=== PATIENT | male | born 1950 | race Caucasian/White ===

== ENCOUNTER 2018-03-24 22:47 | Emergency (ER) | payer OTHER ==
[2018-03-24] MEDS ORDERED: METOPROLOL TARTRATE 50 MG TAB PO STA (23:30)
--- NOTE | 2018-03-24 23:40 | ED ---
Medical Clearance HPI - General Chief complaint: Medical Clearance Stated complaint: [facility] clearance Time Seen by Provider: 03/24/18 23:19 Source: patient Mode of arrival: ambulatory - History of Present Illness Initial comments: Patient is a pleasant 68-year-old male with a history of hypertension, hyperlipidemia, previous heart attacks, previous stroke, and recent orthopedic hip surgery that requires him to walk on crutches who presents to the emergency department in police custody requesting medical clearance for shelter. The assistant chief of police in the room states that the patient was brought in on a warrant for unpaid fee to the court. The assistant chief of police states that if the patient is medically clear that he will be taken to shelter until Monday. If he is not medically clear the patient will be returned home. The patient has no complaints today other than the fact that he takes several medications at home and will not have access to them if he is in shelter. Allergies/Adverse reactions: Allergies Allergy/AdvReac Type Severity Reaction Status Date / Time No Known Allergies Allergy Verified 03/24/18 23:12 Review of Systems ROS Statement: Those systems with pertinent positive or pertinent negative responses have been documented in the HPI. ROS Other: All systems not noted in ROS Statement are negative. Past Medical History Past Medical History: CVA/TIA, Myocardial Infarction (MA) History of Any Multi-Drug Resistant Organisms: None Reported Past Surgical History: Heart Catheterization, Heart Catheterization With Stent, Orthopedic Surgery Additional Past Surgical History / Comment(s): Fractured hip. Past Psychological History: No Psychological Hx Reported Smoking Status: Never smoker Past Alcohol Use History: None Reported Past Drug Use History: None Reported General Exam Limitations: no limitations General appearance: alert, in no apparent distress Head exam: Present: atraumatic, normocephalic Eye exam: Present: normal appearance ENT exam: Present: normal exam Neck exam: Present: normal inspection Respiratory exam: Present: normal lung sounds bilaterally. Absent: respiratory distress, wheezes Cardiovascular Exam: Present: regular rate, normal rhythm GI/Abdominal exam: Present: soft. Absent: distended, tenderness Rectal exam: Present: deferred Extremities exam: Present: normal inspection Back exam: Present: normal inspection Neurological exam: Present: alert, oriented X3, CN II-XII intact, abnormal gait (Secondary to orthopedic surgery and use of crutches.) Psychiatric exam: Present: normal affect, normal mood Skin exam: Present: warm, dry, intact Course Vital Signs 03/24/18 23:09 Temperature 98.3 F Pulse Rate 73 Respiratory 18 Rate Blood Pressure 223/108 O2 Sat by Pulse 95 Oximetry Medical Decision Making - Medical Decision Making Patient presents with a chief complaint of needing medical clearance for shelter. On initial evaluation patient is hypertensive but otherwise stable. He is in no acute distress. At this time, patient was given his home dose of metoprolol for blood pressure control. Discussion with the assistant chief of police reveals that this cleared for shelter he will not have access to his medications. I do not believe this to be a safe situation given his extensive medical history, and moderate disability given recent surgery and required use of crutches. I do not feel that patient is medically clear for shelter. The patient will be returned home and will need to follow up with the court on Monday. The patient and the officer at bedside are agreeable with this plan. Patient stable on discharge. Disposition Clinical Impression: Hypertension Disposition: HOME SELF-CARE Condition: Good Instructions: Hypertension (ED) Is patient prescribed a controlled substance at d/c from ED?: No Referrals: Nonstaff,Physician [Primary Care Provider] - 1-2 days Ni Tan MD [STAFF PHYSICIAN] - 1-2 days Decision to Admit Reason: Admit from EC
[2018-03-25 00:12] VITALS: BP 179/89; PULSE 84; RESP 20; TEMP 98
== END 2018-03-25 00:12 | disposition home or self-care (01) ==
LOC: EC 22:47
DX: I10 Essential (primary) hypertension (principal); I25.2 Old myocardial infarction; Z86.73 Personal history of transient ischemic attack (TIA), and cerebral infarction without residual deficits; Z95.5 Presence of coronary angioplasty implant and graft; Z98.890 Other specified postprocedural states
CPT/HCPCS: 99282

== ENCOUNTER 2024-10-03 02:51 | Inpatient (IN) | payer MEDICARE ==
[2024-10-03 03:14] LABS: Basophils # (A) 0.02 10*3/uL (0.00-0.10); Basophils % (A) 0.2 %; Eosinophils # (A) 0.14 10*3/uL (0.04-0.35); Eosinophils % (A) 1.5 %; HCT 40.2 % (39.6-50.0); HGB 13.8 g/dL (13.0-17.0); Lymphocytes # (A) 1.45 10*3/uL (0.90-5.00); Lymphocytes % (A) 15.1 %; MCH 31.5 pg (27.0-32.0); MCHC 34.3 g/dL (32.0-37.0); MCV 91.8 fL (80.0-97.0); Mean Platelet Volume 8.9 fL (9.5-12.2); Monocytes # (A) 0.67 10*3/uL (0.20-1.00); Neutrophils # (A) 7.27 10*3/uL (1.80-7.70); Neutrophils % (A) 75.8 %; Platelet Count 241 10*3/uL (140-440); RBC 4.38 10*6/uL (4.40-5.60); RDW 13.4 % (11.5-14.5); WBC 9.59 10*3/uL (4.50-10.00)
[2024-10-03] MEDS: ASPIRIN 81 MG PO STA (03:15)
--- NOTE | 2024-10-03 03:15 | ED ---
Chest Pain HPI - General Chief Complaint: Chest Pain Stated Complaint: Chest Pain Time Seen by Provider: 10/03/24 02:54 Source: patient, EMS Mode of arrival: EMS Limitations: no limitations - History of Present Illness Initial Comments: This patient is a 74-year-old man who has history of previous OR, 3 times. First OR resulted in four-vessel CABG. He subsequently had MIs which were stented. The patient states that he had pain that came on tonight and was relieved with nitroglycerin. He states that approximately 20 to 30 minutes later he had recurrence of pain which again resolved with nitroglycerin but when the pain recurred for third time he called EMS and they bring him here. He indicates substernal pain. It is a pressure sensation. He also is having some dyspnea. MD Complaint: chest pain -: hour(s) Onset: during rest Pain Location: substernal Pain Radiation: none Severity: moderate Quality: aching, heaviness Consistency: constant Improves With: nothing Worsens With: nothing Anginal Symptoms: dyspnea Treatments Prior to Arrival: aspirin, nitroglycerin - Related Data Home Medications Medication Instructions Recorded Confirmed Acetaminophen Tab [Tylenol] 325 mg PO Q6H 10/03/24 10/03/24 Aspirin EC [Ecotrin Low Dose] 81 mg PO HS 10/03/24 10/03/24 Atorvastatin [Lipitor] 80 mg PO HS 10/03/24 10/03/24 Clopidogrel [Plavix] 75 mg PO DAILY 10/03/24 10/03/24 Gabapentin [Neurontin] 300 mg PO BID 10/03/24 10/03/24 Isosorbide Mononitrate ER [Imdur] 30 mg PO DAILY 10/03/24 10/03/24 Losartan Potassium 100 mg PO DAILY 10/03/24 10/03/24 Nitroglycerin Sl Tabs [Nitrostat] 0.4 mg SL Q5M PRN 10/03/24 10/03/24 Omeprazole 20 mg PO HS 10/03/24 10/03/24 Oxybutynin ER [Ditropan XL] 10 mg PO DAILY 10/03/24 10/03/24 Primidone [Mysoline] 250 mg PO DAILY 10/03/24 10/03/24 amLODIPine [Norvasc] 5 mg PO HS 10/03/24 10/03/24 metFORMIN HCL [Glucophage] 500 mg PO HS 10/03/24 10/03/24 oxyCODONE HCL [oxyCODONE HCL (IR)] 20 mg PO Q6H 10/03/24 10/03/24 Previous Rx's Medication Instructions Recorded Metoprolol Tartrate [Lopressor] 25 mg PO BID 30 Days #60 tab 10/04/24 Allergies Allergy/AdvReac Type Severity Reaction Status Date / Time No Known Allergies Allergy Verified 10/03/24 06:22 Review of Systems ROS Statement: Those systems with pertinent positive or pertinent negative responses have been documented in the HPI. ROS Other: All systems not noted in ROS Statement are negative. Constitutional: Denies: fever, chills Respiratory: Reports: dyspnea. Denies: cough Cardiovascular: Reports: as per HPI, chest pain. Denies: palpitations, orthopnea, edema, syncope Gastrointestinal: Denies: abdominal pain, nausea, vomiting Musculoskeletal: Denies: back pain Skin: Denies: rash Neurological: Denies: headache, weakness, numbness EKG Findings - EKG Results: EKG: interpreted by ERMD - Blocks, [place], Hypertrophy, ST Abn: AV and intraventricular conduction: left bundle branch block (fixed/intermittent, complete/incomplete) QRS axis and voltage: left axis deviation (-30 to -90) Past Medical History Past Medical History: CVA/TIA, Myocardial Infarction (OR) Additional Past Medical History / Comment(s): total of 7 cardiac stents History of Any Multi-Drug Resistant Organisms: None Reported Past Surgical History: Heart Catheterization, Heart Catheterization With Stent, Orthopedic Surgery Additional Past Surgical History / Comment(s): Fractured hip. Past Psychological History: No Psychological Hx Reported Past Alcohol Use History: None Reported Past Drug Use History: None Reported General Exam Limitations: no limitations General appearance: alert, in no apparent distress Head exam: Present: atraumatic, normocephalic Eye exam: Present: normal appearance. Absent: scleral icterus, conjunctival injection ENT exam: Present: normal oropharynx Neck exam: Present: normal inspection. Absent: tenderness, meningismus Respiratory exam: Present: normal lung sounds bilaterally. Absent: respiratory distress, wheezes, rales, rhonchi, stridor, chest wall tenderness, accessory muscle use Cardiovascular Exam: Present: regular rate, normal rhythm, normal heart sounds. Absent: systolic murmur, diastolic murmur, rubs, gallop GI/Abdominal exam: Present: soft. Absent: distended, tenderness, guarding, rebound Extremities exam: Present: normal inspection, normal capillary refill. Absent: pedal edema, calf tenderness Back exam: Present: normal inspection. Absent: CVA tenderness (R), CVA tenderness (L) Neurological exam: Present: alert Skin exam: Present: warm, dry, intact, normal color. Absent: rash Course Vital Signs 10/03/24 10/03/24 10/03/24 02:53 03:27 03:43 Temperature 98.3 F Pulse Rate 88 69 Respiratory 18 18 Rate Blood Pressure 183/105 175/96 O2 Sat by Pulse 87 L 92 L 94 L Oximetry 10/03/24 10/03/24 10/03/24 04:00 04:16 04:30 Temperature Pulse Rate 69 68 69 Respiratory 18 18 18 Rate Blood Pressure 161/87 151/103 167/99 O2 Sat by Pulse 95 94 L 92 L Oximetry 10/03/24 10/03/24 10/03/24 05:18 05:58 06:13 Temperature Pulse Rate 64 66 68 Respiratory 18 16 18 Rate Blood Pressure 188/131 138/92 139/91 O2 Sat by Pulse 91 L 92 L 93 L Oximetry 10/03/24 10/03/24 10/03/24 07:11 07:49 08:30 Temperature Pulse Rate 67 68 67 Respiratory 16 18 18 Rate Blood Pressure 141/91 121/84 120/75 O2 Sat by Pulse 94 L 95 Oximetry 10/03/24 10/03/24 09:32 10:37 Temperature Pulse Rate 68 67 Respiratory 19 18 Rate Blood Pressure 157/95 153/97 O2 Sat by Pulse 95 93 L Oximetry Chest Pain [facility] - MDM The patient had chest x-ray which I interpreted as negative for acute infiltrate, pneumothorax. There is cardiomegaly. The patient had CT scan of the chest which I interpreted as negative for pulmonary embolism, infiltrate, pneumothorax Patient is 74-year-old man with chest pain concerning for acute coronary syndrome. The patient's workup does reveal elevated troponin. The patient started on additional medications Case is discussed with cardiology and they will see the patient early. He is chest pain-free with the medications. Was pt. sent in by a medical professional or institution (, PA, SOLID DIE CUTTER, urgent care, hospital, or penitentiary...) When possible be specific @ -[No] Did you speak to anyone other than the patient for history (EMS, parent, family, police, friend...)? What history was obtained from this source @ -[No] Did you review nursing and triage notes (agree or disagree)? Why? @ -[I reviewed and agree with nursing and triage notes] Were old charts reviewed (outside hosp., previous admission, EMS record, old EKG, old radiological studies, urgent care reports/EKG's, penitentiary records)? Report findings @ -Yes, I interpreted old charts were reviewed] Differential Diagnosis (chest pain, altered mental status, abdominal pain women, abdominal pain men, vaginal bleeding, weakness, fever, dyspnea, syncope, headache, dizziness, GI bleed, back pain, seizure, CVA, palpatations, mental health, musculoskeletal)? @ -[Differential Chest Pain: Stable Angina, Unstable Angina, STEMI, NSTEMI Aortic Dissection, Pneumothorax, Musculoskeletal, Esophageal Spasm GERD, Cholecystitis, Pancreatitis, Zoster, this is not meant to be an all-inclusive list. EKG interpreted by me (3pts min.). @ -[I interpreted as above] X-rays interpreted by me (1pt min.). @ -[I interpreted as above CT interpreted by me (1pt min.). @ -[I interpreted as above U/S interpreted by me (1pt. min.). @ -[None done] What testing was considered but not performed or refused? (CT, X-rays, U/S, labs)? Why? @ -[None] What meds were considered but not given or refused? Why? @ -[None] Did you discuss the management of the patient with other professionals (professionals i.e. , PA, [employer] DIE C[employer]TER, lab, RT, psych nurse, social work associate, obstetrics technician, teacher, bsa/aml compliance officer, employment evaluator/case manager)? Give summary @ -[Case discussed with admitting physician and the senior cytogenetic technologist, and treatment recommendations incorporated Was smoking cessation discussed for >3mins.? @ -[No] Was critical care preformed (if so, how long)? @ -Yes, 35 minutes Were there social determinants of health that impacted care today? How? (Homelessness, low income, unemployed, alcoholism, drug addiction, transportation, low edu. Level, literacy, decrease access to med. care, assisted, r ehab)? @ -[No] Was there de-escalation of care discussed even if they declined (Discuss DNR or withdrawal of care, Hospice)? DNR status @ -[No] What co-morbidities impacted this encounter? (DM, HTN, Smoking, COPD, CAD, Cancer, CVA, ARF, Chemo, Hep., AIDS, mental health diagnosis, sleep apnea, morbid obesity)? @ -CAD Was patient admitted / discharged? Hospital course, mention meds given and rout e, prescriptions, significant lab abnormalities, going to OR and other pertinent info. @ -[As above Undiagnosed new problem with uncertain prognosis? @ -[No] Drug Therapy requiring intensive monitoring for toxicity (Heparin, Nitro, Insulin, Cardizem)? @ -[Heparin and nitroglycerin infusion Were any procedures done? @ -[No] Diagnosis/symptom? @ -[Acute coronary syndrome Acute, or Chronic, or Acute on Chronic? @ -[Acute Uncomplicated (without systemic symptoms) or Complicated (systemic symptoms)? @ -[Uncomplicated Side effects of treatment? @ -[No] Exacerbation, Progression, or Severe Exacerbation? @ -[No] Poses a threat to life or bodily function? How? (Chest pain, [place], OR, pneumonia, PE, COPD, DKA, ARF, appy, cholecystitis, CVA, Diverticulitis, Homicidal, Suicidal, threat to staff... and all critical care pts) @ -[yes All treatments are based on ideal body weight as in ED triage Disposition Clinical Impression: NSTEMI (non-ST elevated myocardial infarction), Chest pain Disposition: ADMITTED IP TO THIS HOSP Condition: Stable Is patient prescribed a controlled substance at d/c from ED?: No
[2024-10-03] MEDS: METOPROLOL TARTRATE 25 MG TAB PO STA (03:17)
[2024-10-03] MEDS: NITROGLYCERIN OINT 1 INCH/GM PACKET TOPICAL STA (03:17)
[2024-10-03] MEDS: MORPHINE SULFATE 4 MG/ML SYRINGE IV STA (03:17)
[2024-10-03 03:20] LABS: ALT 21 U/L (4-49); AST 44 U/L (17-59); African American GFR (CKD) >90 (>60 ml/min/1.73 sqM); Albumin 3.9 g/dL (3.5-5.0); Alkaline Phosphatase 133 U/L (38-126); Anion Gap 11 mmol/L; Blood Urea Nitrogen 20 mg/dL (9-20); Calcium 8.9 mg/dL (8.4-10.2); Carbon Dioxide 22 mmol/L (22-30); Chloride 103 mmol/L (98-107); Glucose 120 mg/dL (74-99); Magnesium 2.1 mg/dL (1.6-2.3); Non-African American GFR(CKD) 88 (>60 ml/min/1.73 sqM); Potassium 4.2 mmol/L (3.5-5.1); Sodium 136 mmol/L (137-145); Total Bilirubin 0.7 mg/dL (0.2-1.3); Total Protein 6.9 g/dL (6.3-8.2)
[2024-10-03 03:40] LABS: Partial Thromboplastin Time 23.8 sec (22.0-30.0); Prothrombin Time 11.3 sec (10.0-12.5)
--- NOTE | 2024-10-03 03:55 | XR ---
EXAMINATION TYPE: XR chest 1V portable DATE OF EXAM: 10/03/2024 3:16 AM COMPARISON: None TECHNIQUE: XR chest 1V portable Portable AP radiograph of the chest. CLINICAL INDICATION:Male, 74 years old with history of chest pain; FINDINGS: Lungs/Pleura: There is no evidence of pleural effusion, focal consolidation, or pneumothorax. Senesc ent parenchymal change. Pulmonary vascularity: Unremarkable. Heart/mediastinum: Cardiomediastinal silhouette is enlarged. Atherosclerotic calcifications are seen in the aorta. Musculoskeletal: No acute osseous pathology. Midline sternotomy wires are noted. IMPRESSION: No acute cardiopulmonary disease/process. [facility], , 10/03/2024 3:52 AM
[2024-10-03] MEDS: NITROGLYCERIN-D5W PMX 50 MG in DEXTROSE/WATER 1 250ML.BAG IV ONE (04:02)
[2024-10-03] MEDS ORDERED: MORPHINE SULFATE 4 MG/ML SYRINGE IV PRN (04:32)
--- NOTE | 2024-10-03 05:32 | CT ---
EXAM: CT Angiography Chest With Intravenous Contrast CLINICAL HISTORY: ITS.REASON CT Reason: chest pain TECHNIQUE: Axial computed tomographic angiography images of the chest with intravenous contrast. CTDI is 10.5 mGy and DLP is 371.4 mGy-cm. This CT exam was performed using one or more of the following dose reduction techniques: automated exposure control, adjustment of the mA and/or kV according to patient size, and/or use of iterative reconstruction technique. MIP reconstructed images were created and reviewed. COMPARISON: No relevant prior studies available. FINDINGS: Pulmonary arteries: Unremarkable. No pulmonary embolism. Aorta: No acute findings. No thoracic aortic aneurysm. Lungs: Mild bilateral upper lobe predominant interlobular septal thickening likely related to mild pulmonary edema. Pleural-based calcified granuloma in the right upper lobe. Bibasilar subsegmental atelectasis. No mass. Pleural space: Unremarkable. No significant effusion. No pneumothorax. Heart: Borderline cardiomegaly. Multivessel coronary artery disease. Postsurgical changes from CABG. Calcifications in the aortic valve leaflets. No significant pericardial effusion. No evidence of RV dysfunction. Bones/joints: Prior median sternotomy. Chronic left posterior rib fracture deformity. No dislocation. Soft tissues: Unremarkable. Lymph nodes: Unremarkable. No enlarged lymph nodes. Tubes, lines and devices: Left atrial appendage occlusion device. IMPRESSION: Mild bilateral upper lobe predominant interlobular septal thickening likely related to mild pulmonary edema. No pulmonary embolism. Other chronic findings in the body the report.
[2024-10-03] MEDS: HEPARIN SODIUM 1,000 UN/ML (10ML VL) IV ONE ×2 (05:39→11:44)
[2024-10-03] MEDS: HEPARIN SOD,PORK IN 0.45% NACL 25,000 UNIT in 0.45% NACL 1 250ML.BAG IV SCH (05:41)
[2024-10-03] MEDS: SODIUM CHLORIDE 0.9% 1,000 ML IV SCH ×2 (06:03→10:36)
[2024-10-03 06:13] LABS: Glucose,Whole Blood 103 mg/dL (70-110)
--- NOTE | 2024-10-03 06:17 | P.HPIM ---
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 He states the pain was alleviated with use of nitroglycerin at home, after 20-30 minutes he had recurrence of the pain which again resolved with nitroglycerin. He then had a third recurrence of the same pain, at that time he called EMS. He describes it as a pressure-like sensation in the mid epigastric area, as well as notes some shortness of breath. He received 3 doses of nitroglycerin as well as 324 mg aspirin en route. He states that the pain was very similar to his previous MIs, noting that the pressure- like sensation in the mid epigastric area as well as the radiation into his left arm with numbness and tingling overall similar to what he is previously experienced however he notes that this time around it was not as severe as it has been previously. He does endorse following with wind technician at [facility], with whom he follows up regularly. States he had a watchman placed in summer 2023, stating that he was considered to be a good candidate in the effort to not have him on as many blood thinning medications, which she notes the procedure was successful. Social history: - Smoking: Denies - Alcohol use: Minimal social - Recreational drug use: Denies Labratory review: -WBCs 9.59, hemoglobin 13.8, hematocrit 40.2, platelet 241; sodium 136, potassium 4.2, bicarb 22, BUN 20, creatinine 0.77, calcium 8.9, magnesium 2.1, t otal bilirubin 0.7, AST 44, ALT 21, alkaline phosphatase 133 - Troponin 1.170; D-dimer 1.39 Imaging: - Chest x-ray done in the ER independently read and reviewed showed no acute cardiopulmonary disease process - CT angiography showed no evidence of pulmonary embolism, showing mild bilateral upper lobe predominant interlobular septal thickening likely related to mild pulmonary edema - EKG done in the ER independently read and interpreted showed heart rate of 90, evidence of atrial fibrillation, no ST segment elevation or depression seen, no T-wave inversions seen; left axis deviation as well as evidence of left bundle branch block; QTc 447 Vitals: - On arrival: Blood pressure 193/105, heart rate 88, respiratory 18, SpO2 was 87% on room air - Most recently: Blood pressure 167/99, heart rate 69, respiratory rate 18, SpO2 92% on 2 L nasal cannula Patient admitted to internal medicine service REVIEW OF SYSTEMS: Pertinent positives and negatives noted in HPI. The rest of the 14-point review of systems is negative. Physical Exam: General: nontoxic, no distress, appears at stated age Derm: warm, dry, intact Head: atraumatic, normocephalic, symmetric Eyes: EOMI, anicteric sclera Mouth: no lip lesion, mucus membranes moist Cardiovascular: S1 S2 reg, no murmur, rubs, or gallops Lungs: CTA bilateral, no rales, no accessory muscle use Abdominal: soft, non-tender to palpataion, no appreciable organomegaly Extremities: no gross muscle atrophy, no edema, no contractures Neuro: Alert, Oriented, CNII-XII grossly intact, gait normal Psych: well appearing, appropriate affect Assessment and plan 74-year-old male with PMH of 3 MIs, 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 #Type I NSTEMI #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, 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 and the others resulting in stent placement (most recent in 2016, total of 7 stents placed) - EKG done in the ER independently read and interpreted showed heart rate of 90, evidence of atrial fibrillation, no ST segment elevation or depression seen, no T-wave inversions seen; left axis deviation as well as evidence of left bundle branch block; QTc 447 - Trend troponins: Initial troponin 1.170 - Continue nitroglycerin as needed for pain: Discontinue morphine for pain control due to association with adverse outcomes - Continue with aspirin 81 mg daily, Lipitor 80 mg nightly - Consider initiation of P2 Y12 inhibitor in addition to aspirin - if a ngiography occurring in >24 hours after onset initiate Brilinta (or Plavix); if patient undergoes angiography and PCI in <24 hours consider use of Brilinta due to his history of CVA/TIA - Continue with metoprolol 50 mg twice daily - Continue on heparin drip - Cardiac monitoring - Supplemental oxygen as needed - N.p.o. in preparation for catheterization - Cardiology consulted - CT angiography showed no evidence of pulmonary embolism, showing mild bilateral upper lobe predominant interlobular septal thickening likely related to mild pulmonary edema #Prediabetic without elevated serum glucose level - Hold metformin - Continue to monitor serum glucose levels BMP, Accu-Cheks ACHS - If persistently elevated consider initiating sliding scale, check hemoglobin A1c Chronic conditions: #Hypertension #Atrial fibrillation s/p watchmen placement #TMJ GI prophylaxis: None DVT prophylaxis: Currently on heparin drip The patient is admitted with an anticipated more than than 2 midnight stay for evaluation of NSTEMI. CODE STATUS: Full code Discussed with: Patient Anticipated discharge place: Pending clinical course Dictation was produced using [employer] dictation software. please excuse any grammatical, word or spelling errors. Reilly Maharaj MD PGY-1 IM Attestation : Patient seen and examined with director biomedical engineering Dr. Maharaj. Agree with above assessment and plan. 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 Patient has NSTEMI and case was discussed with cardiology. He received full dose of aspirin and was placed on heparin. Continue with ACS protocol and keep patient NPO. Patient was chest pain-free when evaluated . Time spent : 55 min Past Medical History Past Medical History: CVA/TIA, Myocardial Infarction ([place]) Additional Past Medical History / Comment(s): total of 7 cardiac stents History of Any Multi-Drug Resistant Organisms: None Reported Past Surgical History: Heart Catheterization, Heart Catheterization With Stent, Orthopedic Surgery Additional Past Surgical History / Comment(s): Fractured hip. Past Psychological History: No Psychological Hx Reported Past Alcohol Use History: None Reported Past Drug Use History: None Reported Medications and Allergies Allergies Allergy/AdvReac Type Severity Reaction Status Date / Time No Known Allergies Allergy Verified 10/03/24 06:22 Physical Exam Vitals: Vital Signs Temp Pulse Resp BP Pulse Ox 10/03/24 04:30 69 18 167/99 92 L 10/03/24 04:16 68 18 151/103 94 L 10/03/24 04:00 69 18 161/87 95 10/03/24 03:43 69 18 175/96 94 L 10/03/24 03:27 92 L 10/03/24 02:53 98.3 F 88 18 183/105 87 L Intake and Output 10/02/24 10/02/24 10/03/24 14:59 22:59 06:59 Other: Weight 86.183 kg Results CBC & Chem 7: 10/03/24 03:03 10/03/24 03:03 Labs: Abnormal Lab Results - Last 24 Hours (Table) 10/03/24 10/03/24 10/03/24 Range/Units 03:03 03:03 03:03 RBC 4.38 L (4.40-5.60) 10*6/uL MPV 8.9 L (9.5-12.2) fL D-Dimer 1.39 H (<0.60) mg/L FEU Sodium 136 L (137-145) mmol/L Glucose 120 H (74-99) mg/dL Alkaline Phosphatase 133 H (38-126) U/L Troponin I (0.000-0.034) ng/mL 10/03/24 Range/Units 03:03 RBC (4.40-5.60) 10*6/uL MPV (9.5-12.2) fL D-Dimer (<0.60) mg/L FEU Sodium (137-145) mmol/L Glucose (74-99) mg/dL Alkaline Phosphatase (38-126) U/L Troponin I 1.170 H* (0.000-0.034) ng/mL
[2024-10-03] MEDS: LOSARTAN 50 MG TAB PO SCH (08:26)
[2024-10-03] MEDS: CLOPIDOGREL 75 MG TAB PO SCH (08:27)
[2024-10-03] MEDS: ASPIRIN 81 MG PO SCH (08:27)
[2024-10-03] MEDS: METOPROLOL TARTRATE 25 MG TAB PO SCH (08:27)
[2024-10-03] MEDS ORDERED: ATORVASTATIN 80 MG TAB PO SCH (09:00)
[2024-10-03] MEDS: NITROGLYCERIN OINT 1 INCH/GM PACKET TOPICAL SCH (09:19)
[2024-10-03] MEDS ORDERED: ALPRAZolam 0.5 MG TAB PO PRN (10:01)
[2024-10-03] MEDS ORDERED: ALPRAZolam 0.25 MG TAB PO PRN (10:01)
[2024-10-03] MEDS ORDERED: ASPIRIN 325 MG TAB PO STA (10:01)
[2024-10-03] MEDS ORDERED: NITROGLYCERIN SL TABS 0.4 MG TAB SUBLINGUAL PRN (10:01)
[2024-10-03] MEDS: ATORVASTATIN 80 MG TAB PO STA (10:26)
[2024-10-03] MEDS: HEPARIN SODIUM,PORCINE 10,000 UNIT in SODIUM CHLORIDE 0.9% 1,000 ML IRRIGATION PRN (10:45)
[2024-10-03] MEDS: HEPARIN SODIUM,PORCINE (1 ML) 2,500 UNIT in SODIUM CHLORIDE 0.9% 250 ML IRRIGATION PRN (10:45)
[2024-10-03] MEDS: fentaNYL (PF) 50 MCG/1 ML VIAL IVP ONE (11:25)
[2024-10-03] MEDS: MIDAZOLAM 2 MG/2 ML VIAL IVP ONE (11:25)
[2024-10-03] MEDS: LIDOCAINE 1% INJ 10MG/ML (20 ML MDV) SQ ONE (11:29)
[2024-10-03] MEDS: IOPAMIDOL-370 100ML BTL INJ ONE (11:51)
[2024-10-03] MEDS: HEPARIN SODIUM 1,000 UN/ML (10ML VL) IV PRN (12:00)
--- NOTE | 2024-10-03 12:06 | P.CRDCN ---
History of Present Illness Consult date: 10/03/24 Reason for Consult (text): NSTEMI History of present illness: This is a 74-year-old male patient follows with insurance assistant, Dr. Luis Gabriel, with past medical history of several MIs, four-vessel CABG, multiple cardiac stents, atrial fibrillation status post Watchman procedure, cardioversion x 2, hypertension, hyperlipidemia. We have been asked to evaluate the patient for NSTEMI. Patient states that he developed chest pain at 2 in the morning and took a nitroglycerin which took the pain away but then within 1/2-hour the pain returned. He did this for total of 3 nitroglycerin tablets. He started getting worried because his left arm was numb and he was sweating. At the time of this evaluation, chest pain is completely resolved. Blood pressure 141/91, heart rate 67, pulse ox 94% on 2 L nasal cannula. Patient has been started on heparin drip and nitroglycerin drip. Patient is seen today in the emergency center waiting for a bed on the cardiac stepdown unit. Dr. Chow discussed with the patient recommendations for cardiac catheterization and he is agreeable to move forward with this today. -EKG: Sinus rhythm with left bundle branch block. -Chest x-ray: No acute process. -CTA of the chest: Likely mild pulmonary edema. No pulmonary embolism. -Laboratory studies: WBC 9.5, hemoglobin 13.8, D-dimer 1.39. Electrolytes and renal function are within normal limits. Alkaline phosphatase 133. Troponin 1.17. -Home cardiac medications: Amlodipine 5 mg at bedtime, aspirin 81 mg daily, atorvastatin 80 mg at bedtime, Plavix 75 mg daily, Imdur 30 mg daily, losartan 100 mg daily, Nitrostat as needed. Review Of Systems: At the time of my exam: CONSTITUTIONAL: Denies fever or chills. HEENT: Denies blurred vision, vision changes, or eye pain. Denies hemoptysis CARDIOVASCULAR: Denies chest pain. Denies orthopnea. Denies PND. Denies palpitations RESPIRATORY: Denies shortness of breath. GASTROINTESTINAL: Denies abdominal pain. Denies nausea or vomiting. HEMATOLOGIC: Denies bleeding disorders. GENITOURINARY: Denies any blood in urine. SKIN: Denies puritis. Denies rash. Physical examination: Gen: This is 74-year-old male in no acute distress. VS: reviewed HEENT: Head is atraumatic, normocephalic. Pupils equal, round. Sclerae is anicteric. NECK: Supple. No JVD. LUNGS: Clear to auscultation. No wheezes or rhonchi. No intercostal retractions. HEART: Regular rate and rhythm. ABDOMEN: Soft No tenderness. EXTREMITIES: No pedal edema. No calf tenderness. NEUROLOGICAL: Patient is awake, alert and oriented x3. Assessment: NSTEMI History of coronary artery disease with previous four-vessel CABG and multiple stents, details are not available History of stroke Hypertension Hyperlipidemia Diabetes mellitus type 2 Plan: Resume patient's home cardiac medications Continue patient on heparin drip and nitroglycerin drip Obtain records from patient's primary insurance assistant Obtain 2-D echocardiogram and Doppler study to assess cardiac structure and function Schedule patient for cardiac catheterization today with Dr. Chow N.p.o. Further recommendations to follow based upon clinical course Thank you kindly for this consultation. Nurse practitioner note has been reviewed, I agree with documented findings and plan of care. Patient was seen and examined. Past Medical History Past Medical History: CVA/TIA, Myocardial Infarction ([place]) Additional Past Medical History / Comment(s): total of 7 cardiac stents History of Any Multi-Drug Resistant Organisms: None Reported Past Surgical History: Heart Catheterization, Heart Catheterization With Stent, Orthopedic Surgery Additional Past Surgical History / Comment(s): Fractured hip. Past Psychological History: No Psychological Hx Reported Past Alcohol Use History: None Reported Past Drug Use History: None Reported Medications and Allergies Home Medications Medication Instructions Recorded Confirmed Type Acetaminophen Tab [Tylenol] 325 mg PO Q6H 10/03/24 10/03/24 History Aspirin EC [Ecotrin Low Dose] 81 mg PO HS 10/03/24 10/03/24 History Aspirin EC [Ecotrin] 325 mg PO Q6H 10/03/24 10/03/24 History Atorvastatin [Lipitor] 80 mg PO HS 10/03/24 10/03/24 History Clopidogrel [Plavix] 75 mg PO DAILY 10/03/24 10/03/24 History Gabapentin [Neurontin] 300 mg PO BID 10/03/24 10/03/24 History Isosorbide Mononitrate ER [Imdur] 30 mg PO DAILY 10/03/24 10/03/24 History Losartan Potassium 100 mg PO DAILY 10/03/24 10/03/24 History Nitroglycerin Sl Tabs [Nitrostat] 0.4 mg SL Q5M PRN 10/03/24 10/03/24 History Omeprazole 20 mg PO HS 10/03/24 10/03/24 History Oxybutynin ER [Ditropan XL] 10 mg PO DAILY 10/03/24 10/03/24 History Primidone [Mysoline] 250 mg PO DAILY 10/03/24 10/03/24 History amLODIPine [Norvasc] 5 mg PO HS 10/03/24 10/03/24 History metFORMIN HCL [Glucophage] 500 mg PO HS 10/03/24 10/03/24 History oxyCODONE HCL [oxyCODONE HCL (IR)] 20 mg PO Q6H 10/03/24 10/03/24 History Allergies Allergy/AdvReac Type Severity Reaction Status Date / Time No Known Allergies Allergy Verified 10/03/24 06:22 Physical Exam Vitals: Vital Signs Temp Pulse Resp BP Pulse Ox 10/03/24 07:11 67 16 141/91 94 L 10/03/24 06:13 68 18 139/91 93 L 10/03/24 05:58 66 16 138/92 92 L 10/03/24 05:18 64 18 188/131 91 L 10/03/24 04:30 69 18 167/99 92 L 10/03/24 04:16 68 18 151/103 94 L 10/03/24 04:00 69 18 161/87 95 10/03/24 03:43 69 18 175/96 94 L 10/03/24 03:27 92 L 10/03/24 02:53 98.3 F 88 18 183/105 87 L Intake and Output 10/02/24 10/03/24 10/03/24 22:59 06:59 14:59 Other: Weight 86.183 kg Results 10/03/24 03:03 10/03/24 03:03 Cardiac Enzymes 10/03/24 10/03/24 Range/Units 03:03 03:03 AST 44 (17-59) U/L Troponin I 1.170 H* (0.000-0.034) ng/mL Coagulation 10/03/24 Range/Units 03:03 PT 11.3 (10.0-12.5) sec APTT 23.8 (22.0-30.0) sec CBC 10/03/24 Range/Units 03:03 WBC 9.59 (4.50-10.00) 10*3/uL RBC 4.38 L (4.40-5.60) 10*6/uL Hgb 13.8 (13.0-17.0) g/dL Hct 40.2 (39.6-50.0) % Plt Count 241 (140-440) 10*3/uL Comprehensive Metabolic Panel 10/03/24 Range/Units 03:03 Sodium 136 L (137-145) mmol/L Potassium 4.2 (3.5-5.1) mmol/L Chloride 103 (98-107) mmol/L Carbon Dioxide 22 (22-30) mmol/L BUN 20 (9-20) mg/dL Creatinine 0.77 (0.66-1.25) mg/dL Glucose 120 H (74-99) mg/dL Calcium 8.9 (8.4-10.2) mg/dL AST 44 (17-59) U/L ALT 21 (4-49) U/L Alkaline Phosphatase 133 H (38-126) U/L Total Protein 6.9 (6.3-8.2) g/dL Albumin 3.9 (3.5-5.0) g/dL Current Medications Generic Name Dose Route Start Last Admin Trade Name Freq PRN Reason Stop Dose Admin Aspirin 81 mg 10/03/24 09:00 Aspirin 81 Mg PO DAILY [facility] Atorvastatin Calcium 80 mg 10/03/24 09:00 Atorvastatin 80 Mg Tab PO DAILY [facility] Heparin Sodium (Porcine) 0 unit 10/03/24 04:35 Heparin Sodium 1,000 Un/Ml (10ml Vl) IV PER PROTOCOL PRN Low PTT Protocol Nitroglycerin/Dextrose 50 mg/ 250 mls @ 1.5 mls/hr 10/03/24 03:52 10/03/24 04:02 IV Solution IV 10/04/24 03:51 5 mcg/min .Q24H ONE 1.5 mls/hr Administration Protocol 5 MCG/MIN Sodium Chloride 1,000 mls @ 20 mls/hr 10/03/24 04:45 10/03/24 06:03 Saline 0.9% IV 20 mls/hr .Q24H YOHANNES Administration Heparin Sodium/Sodium Chloride 250 mls @ 9.997 mls/hr 10/03/24 04:45 10/03/24 05:41 25,000 unit/ Sodium Chloride IV 11.6 units/kg/hr .Q24H YOHANNES 9.997 mls/hr Administration Protocol 11.6 UNITS/KG/HR Metoprolol Tartrate 25 mg 10/03/24 09:00 Metoprolol Tartrate 25 Mg Tab PO BID YOHANNES Nitroglycerin 1 inch 10/03/24 10:00 Nitroglycerin Oint 1 Inch/Gm Packet TOPICAL Q6H YOHANNES Oxycodone HCl 10 mg 10/03/24 06:55 Oxycodone Hcl 5 Mg Tab PO Q6HR PRN Moderate Breakthrough Pain Intake and Output 10/02/24 10/03/24 10/03/24 22:59 06:59 14:59 Other: Weight 86.183 kg 10/03/24 03:03 10/03/24 03:03
[2024-10-03] MEDS: CLOPIDOGREL 75 MG TAB PO ONE (12:07)
[2024-10-03] MEDS: NITROGLYCERIN 1000MCG/10ML SYRINGE INTRACORON ONE (12:27)
[2024-10-03] MEDS ORDERED: RX INFO: IV CONTRAST WAS GIVEN 1 EACH MISC MISCELLANE PRN (12:45)
[2024-10-03] MEDS ORDERED: ATROPINE SULFATE 0.1 MG/ML 10ML SYRINGE IV PRN (12:45)
[2024-10-03] MEDS ORDERED: MAG HYDROX/AL HYDROX/SIMETH 30 ML CUP PO PRN (12:45)
[2024-10-03] MEDS ORDERED: ZOLPIDEM 5 MG TAB PO PRN (12:45)
--- NOTE | 2024-10-03 16:15 | P.PRCINT ---
Percutaneous Coronary Int. - Percutaneous Coronary Intervention Percutaneous Coronary Intervention: PROCEDURES PERFORMED: Left heart catheterization, bilateral coronary angiography, ultrasound guided arterial access, CAO to LAD and left radial to OM angiography, ascending aortic angiography, PCI left radial to OM1 branch with a 2.75 x 12mm Xience GEOFFREY, post dilated with a 2.75mm balloon, IVUS left radial to OM INDICATION: NSTEMI CONSENT:The risks, benefits and alternative therapies for the above-mentioned procedure and for both sedation/analgesia as well as necessary blood product administration, if indicated, as they pertain to this patient were discussed with the patient. The patient has indicated understanding and acceptance of the risks and procedures discussed. PROCEDURE: After the risks, benefits and alternatives of the above mentioned procedure explained in detail with the patient, informed consent was obtained. Patient was taken to the catheterization lab and prepped and draped in usual fashion. Ultrasound guidance was used to assess for arterial access. 1% lidocaine was used to anesthetize the right femoral artery. A 6-[place] sheath was placed in the right femoral artery using modified Seldinger technique and ultrasound guidance. Left coronary angiography was performed with a 6-[place] JL 4.0 catheter and right coronary angiography was performed with a 6-[place] FR4 catheter in various views. A 6-[place] FR4 catheter was inserted into the left ventricle and pressure measurements were obtained. CAO to LAD angiography was performed with a 6-[place] I am catheter. Left radial to OM angiography was performed with a 6-[place] AL-1 catheter. Ascending aortic root angiogram was performed which showed only patent graft appearing to be the radial to OM. The decision was made to perform PCI of the left radial to OM lesion. Heparin was given. A 6-[place] AL 0.75 guide was used to engage the left radial artery. A 0.014 BMW wire was advanced to the distal left radial to OM 1 branch. Predilation was performed with a 2.5 mm balloon. Intravascular ultrasound was performed which showed reference vessel 2.75 mm. A 2.75 x 12 mm drug-eluting stent was placed in the mid left radial to OM branch which appeared to be at the edge of the prior stents at the anastomosis site. this time was postdilated with a 2.75 mm noncompliant balloon. The right femoral angiogram showed adequate anatomy for closure and an Angioseal was placed with hemostasis achieved. The patient tolerated the procedure well. Patient was transported back to the post catheterization holding area in stable condition. Conscious Sedation: Patient was monitored under the direct supervision of myself for conscious sedation using Versed and fentanyl for a total duration of 60 minutes HEMODYNAMICS: here to: 130/72 LV: 134/5, LVEDP 12 SELECTIVE CORONARY ARTERIOGRAPHY: LEFT MAIN: The left main is a large caliber vessel which bifurcates into the LAD and circumflex. There is distal left main 95% stenosis. LEFT ANTERIOR DESCENDING CORONARY ARTERY: LAD is a large caliber vessel which wraps around to the apex. There is 100% proximal LAD stenosis. LEFT CIRCUMFLEX CORONARY ARTERY: Left circumflex is a moderate caliber vessel with 100% circumflex stenosis. RIGHT CORONARY ARTERY: The right coronary artery is a large caliber vessel which gives off a PDA and PLV branch and is the dominant vessel. There is patent RCA stent with mild 20-30% stenosis Ascending aortogram: Appears only patent graft left radial to OM Left radial to OM 1: There is a long area of stent from the left radial artery to the anastomosis. At the edge of the stent there is a 90% stenosis. Otherwise there are mild luminal irregularities of the OM1 CAO to LAD: Widely patent with some [id number] collaterals FINAL IMPRESSION: 1. Severe muscogee CAD as described above including 95% left main, 100% proximal LAD, 100% circumflex and 20-30% RCA stenosis. 2. Patent CAO to LAD 3. 95% left radial toe OM1 stenosis 4. Normal left sided filling pressures 5. Status post PCI left radial to OM1 branch with a 2.75 x 12mm Xience GEOFFREY, post dilated with a 2.75mm NC balloon PLAN: 1. Aggressive risk factor modification per most recent ACC/AHA guidelines. 2. Continue dual antiplatelets for 12 months with aspirin and Plavix
--- NOTE | 2024-10-03 18:05 | CA ---
Transthoracic Echo Report Name: Jeremias Woodward Age: 74 Gender: M : 1950 Exam Date: 10/03/2024 10:27 Exam Location: [facility] Ht (in): 68 Wt (lb): 190 Ordering Physician: Manuela Beyer Attending/Referring Phys: [id number], Kayleen Collections Agent Sri Reza, LEXIE Procedure CPT: Indications: lvf, NSTEMI Cardiac Hx: Technical Quality: Good Contrast 1: Total Dose (mL): Contrast 2: Total Dose (mL): MEASUREMENTS (Male / Female) Normal Values 2D ECHO LV Diastolic Diameter PLAX 5.1 cm 4.2 - 5.9 / 3.9 - 5.3 cm LV Systolic Diameter PLAX 4.0 cm IVS Diastolic Thickness 1.2 cm 0.6 - 1.0 / 0.6 - 0.9 cm LVPW Diastolic Thickness 1.4 cm 0.6 - 1.0 / 0.6 - 0.9 cm LV Relative Wall Thickness 0.5 RV Internal Dim ED PLAX 4.3 cm LA Systolic Diameter LX 4.7 cm 3.0 - 4.0 / 2.7 - 3.8 cm LV Diastolic Volume MOD BP 130.6 cm??? 67 - 155 / 56 - 104 cm??? LV Systolic Volume MOD BP 75.4 cm??? - 58 / 19 - 49 cm??? LV Ejection Fraction MOD BP 42.3 % >= 55 % LV Cardiac Index MOD BP 1801.4 cm???/min???m??? LV Diastolic Volume MOD 4C 167.5 cm??? LV Systolic Volume MOD 4C 97.9 cm??? LV Ejection Fraction MOD 4C 41.6 % LV Cardiac Index MOD 4C 2271.2 cm???/min???m??? LV Diastolic Length 4C 8.6 cm LV Systolic Length 4C 7.5 cm LV Diastolic Volume MOD 2C 95.5 cm??? LV Systolic Volume MOD 2C 55.7 cm??? LV Ejection Fraction MOD 2C 41.7 % LV Cardiac Index MOD 2C 1299.6 cm???/min???m??? LV Diastolic Length 2C 8.0 cm LV Systolic Length 2C 7.1 cm LA Volume 108.3 cm??? - 58 / 22 - 52 cm??? LA Volume Index 52.7 cm???/m??? 16 - 28 cm???/m??? M-MODE Aortic Root Diameter MM 4.2 cm AV Cusp Separation MM 1.7 cm DOPPLER AV Peak Velocity 191.6 cm/s AV Peak Gradient 14.7 mmHg AV Mean Velocity 127.2 cm/s AV Mean Gradient 7.3 mmHg AV Velocity Time Integral 34.9 cm AI Peak Velocity 496.1 cm/s AI Peak Gradient 98.5 mmHg AI Pressure Half Time 705.9 ms MV Area PHT 4.0 cm??? MV Deceleration Time 227.9 ms TR Peak Velocity 320.3 cm/s TR Peak Gradient 41.0 mmHg Right Ventricular Systolic Press 45.3 mmHg FINDINGS Left Ventricle Left ventricular ejection fraction is estimated at 40-45 %. Left ventricular cavity size normal. Mildly increased septal wall thickness. Moderately increased left ventricular systolic volume. Moderately decreased left ventricular ejection fraction. Right Ventricle Moderate right ventricular dilatation. Moderate pulmonary hypertension. Right Atrium Severe right atrial dilatation. No right atrial thrombus or mass seen. Left Atrium Severe LA dilatation Mitral Valve Structurally normal mitral valve. Mild mitral regurgitation. Aortic Valve Trileaflet aortic valve. Thickened aortic valve without stenosis. Mild aortic regurgitation. Tricuspid Valve Structurally normal tricuspid valve. Moderate tricuspid regurgitation. Pulmonic Valve Pulmonic valve not well visualized. No pulmonic regurgitation. Pericardium No pericardial effusion. Aorta Mild aortic dilatation at the level of the sinuses of valsalva 42 mm CONCLUSIONS LVEF 40 to 45% Moderately reduced global LV systolic function Mild concentric LVH RV appears dilated with preserved systolic function. Moderate pulmonary hypertension with RVSP estimated at 46 mmHg Severe biatrial dilatation Mild mitral regurgitation, moderate tricuspid regurgitation Mild aortic regurgitation Mildly dilated aortic root measuring at 4.2 cm Previewed by: Dr Tyler Wilson (Electronically Signed) Final Date: 03 October 2024 18:04
[2024-10-03] MEDS: amLODIPine 5 MG TAB PO SCH (21:48)
[2024-10-03] MEDS: GABAPENTIN 300 MG CAP PO SCH (21:48)
[2024-10-03] MEDS: PANTOPRAZOLE 40 MG TABLET PO SCH (21:48)
[2024-10-03] MEDS: ATORVASTATIN 80 MG TAB PO SCH (21:48)
[2024-10-04 06:26] LABS: Glucose,Whole Blood 140 mg/dL (70-110)
--- NOTE | 2024-10-04 07:18 | P.PN ---
Subjective Progress Note Date: 10/04/24 HPI: This gentleman has history of CAD prior VT, bypass surgery and also has chronic persistent atrial fibrillation status post Watchman procedure. He has diabetes hypertension hyperlipidemia. He came into the hospital with a non-ST elevation VT picture underwent cardiac cath by Dr. Chow yesterday who performed stenting of a free radial artery graft to the obtuse marginal with excellent result. Postprocedure course is uneventful EKG revealed atrial fibrillation controlled rate left bundle branch block pattern. Patient has a previous Watchman procedure. He is doing well today his right groin is clean and dry pulse is good vitals are stable EKG does not show any new changes labs are pending. He is feeling remarkably well asymptomatic doing well. He can be discharged once the labs are reviewed. He will follow-up with his digital assistant Dr. Tim Pickard in about a week. Advised to make sure he takes all his medications specifically dual antiplatelet therapy. PHYSICIAL EXAM: Vitals are stable no JVD S1-S2 with irregularity in rhythm short systolic murmur lungs are clear abdomen is soft right groin is clean and dry pulses are diminished Central nervous system grossly no focal deficit. IMPRESSION: 1. Non-ST elevation VT status post PCI of free radial artery graft to the obtuse marginal yesterday by Dr. Chow with good. 2. CAD with previous bypass surgery and VT. 3. Type 2 diabetes mellitus. 4. Chronic atrial fibrillation controlled rate with a Watchman procedure. 5.. RECOMMENDATIONS: Plan is to increase activity check his labs and he can be discharged and he will follow-up with his digital assistant Dr. Barrera. Objective - Vital Signs Vital signs: Vital Signs Temp 98.0 F 10/04/24 03:55 Pulse 55 L 10/04/24 03:55 Resp 18 10/04/24 03:55 BP 120/74 10/04/24 03:55 Pulse Ox 94 L 10/04/24 03:55 FiO2 Intake & Output 10/03/24 10/04/24 10/04/24 18:59 06:59 18:59 Intake Total 47.652 Balance 47.652 Weight 86.183 kg 78 kg Intake: Intake, IV Titration 47.652 Amount Heparin Sod,Pork in 0.45% 47.652 NaCl 25,000 unit In 0.45 % NaCl 1 250ml.bag @ 11.6 UNITS/KG/HR 9.997 mls/hr IV .Q24H [facility] Rx#: [id number] Other: Voiding Method Urinal Urinal # Voids 2 1 # Bowel Movements 1 - Labs CBC & Chem 7: 10/03/24 03:03 10/03/24 03:03 Labs: Abnormal Lab Results - Last 24 Hours (Table) 10/03/24 10/03/24 10/03/24 Range/Units 06:28 09:10 14:16 APTT 71.9 H (22.0-30.0) sec POC Glucose (mg/dL) (70-110) mg/dL Hemoglobin A1c (<=6.0) % Troponin I 1.530 H* 2.500 H* (0.000-0.034) ng/mL 10/03/24 10/04/24 Range/Units 14:16 06:20 APTT (22.0-30.0) sec POC Glucose (mg/dL) 140 H (70-110) mg/dL Hemoglobin A1c 7.0 H (<=6.0) % Troponin I (0.000-0.034) ng/mL
[2024-10-04 07:33] LABS: Basophils # (A) 0.02 10*3/uL (0.00-0.10); Basophils % (A) 0.3 %; Eosinophils % (A) 1.5 %; HCT 39.1 % (39.6-50.0); HGB 13.4 g/dL (13.0-17.0); Lymphocytes # (A) 2.05 10*3/uL (0.90-5.00); MCH 32.1 pg (27.0-32.0); MCHC 34.3 g/dL (32.0-37.0); MCV 93.8 fL (80.0-97.0); Mean Platelet Volume 9.3 fL (9.5-12.2); Monocytes # (A) 0.62 10*3/uL (0.20-1.00); Monocytes % (A) 9.1 %; Neutrophils # (A) 4.03 10*3/uL (1.80-7.70); Neutrophils % (A) 58.8 %; Platelet Count 225 10*3/uL (140-440); RBC 4.17 10*6/uL (4.40-5.60); RDW 13.7 % (11.5-14.5); WBC 6.84 10*3/uL (4.50-10.00)
[2024-10-04 07:39] LABS: INR 1.1 (<1.2); Prothrombin Time 12.2 sec (10.0-12.5)
[2024-10-04 07:41] LABS: African American GFR (CKD) >90 (>60 ml/min/1.73 sqM); Anion Gap 7 mmol/L; Blood Urea Nitrogen 16 mg/dL (9-20); Calcium 8.9 mg/dL (8.4-10.2); Carbon Dioxide 28 mmol/L (22-30); Chloride 102 mmol/L (98-107); Glucose 104 mg/dL (74-99); Non-African American GFR(CKD) 83 (>60 ml/min/1.73 sqM); Potassium 4.4 mmol/L (3.5-5.1); Sodium 137 mmol/L (137-145)
[2024-10-04] MEDS: PRIMIDONE 250 MG TAB PO SCH (08:04)
[2024-10-04] MEDS: OXYBUTYNIN 10 MG TAB.ER.24 PO SCH (08:04)
[2024-10-04 08:37] VITALS: BP 134/93; PULSE 74; RESP 16; TEMP 97.8
[2024-10-04] MEDS ORDERED: ASPIRIN 325 MG TAB PO SCH (09:00)
[2024-10-04 10:22] LABS: Chol/HDL Ratio 4.66 Ratio
[2024-10-04 10:23] LABS: LDL Cholesterol,Calculated 87.4 mg/dL (0.0-131.0)
[2024-10-04 11:27] VITALS: BMI 26.1
--- NOTE | 2024-10-04 15:26 | P.DS ---
Providers Date of admission: 10/03/24 04:32 Expected date of discharge: 10/04/24 Attending physician: Candelario Awan MD Consults: 10/03/24 04:32 Consult Physician Urgent Consulting Provider: Tyler Wilson Consult Reason/Comments: Acute coronary syndrome Do you want consulting provider notified?: Yes 10/03/24 12:45 Consult Physician Routine Consulting Provider: [facility] Consult Reason/Comments: Post Interventional Patient Do you want consulting provider notified?: Already Contacted Primary care physician: Eric Rodriguez [facility] Course: Discharge diagnosis: Type I NSTEMI, s/p PCI left radial to OM1 branch 10/03/2024 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, 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 and the others resulting in stent placement (most recent in 2015, total of 7 stents placed) Bradycardia Prediabetic without elevated serum glucose level Hypertension Chronic Atrial fibrillation s/p watchmen placement TMJ Neuropathy Urinary incontinence GERD Hospital Course: 74-year-old male with PMH of 3 MIs, 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 He states the pain was alleviated with use of nitroglycerin at home, after 20-30 minutes he had recurrence of the pain which again resolved with nitroglycerin. He then had a third recurrence of the same pain, at that time he called EMS. He describes it as a pressure-like sensation in the mid epigastric area, as well as notes some shortness of breath. Initial evaluation in the ED showed vitals Blood pressure 193/105, heart rate 88, respiratory 18, SpO2 was 87% on room air.Chest x-ray done in the ER independently read and reviewed showed no acute cardiopulmonary disease process. CT angiography showed no evidence of pulmonary embolism, showing mild bilateral upper lobe predominant interlobular septal thickening likely related to mild pulmonary edema. EKG done in the ER independently read and interpreted showed heart rate of 90, evidence of atrial fibrillation, no ST segment elevation or depression seen, no T-wave inversions seen; left axis deviation as well as evidence of left bundle branch block; QTc 447. Troponin I 1.170, 1.530, 2.5 At that point patient was started on Heparin drip, aspirin, Lipitor and suppleme ntal oxygen as needed. He was maintained n.p.o. Cardiology was consulted. Further workup included echocardiogram showing EF 40 to 45%, moderately reduced global LV systolic function, mild concentric LVH, RV appears dilated with preserved systolic function, RVSP 46 mmHg, severe biatrial dilatation, mild MR, moderate TR, mild AR, mildly dilated aortic root. He was also placed on nitroglycerin drip. He underwent cardiac cath that showed severe [place] CAD 95% left main, 100% proximal LAD, 100% circumflex and 20 to 30% RCA stenosis, patent CAO to LAD, 95% left radial to OM1 stenosis, normal left-sided filling pressures. He is S/p PCI left radial to OM1 branch with a 2.75 x 12mm Xience GEOFFREY, post dilated with a 2.75mm NC balloon on 10/03/2024. Plan is Aggressive risk factor modification per most recent ACC/AHA guidelines and Continue dual antiplatelets for 12 months with aspirin and Plavix. Patient has been optimized for discharge. Patient seen at bedside today and is feeling good and excited about discharge. Patient will be discharged today and is given a script for metoprolol 25 mg p.o. twice daily. Consider adding Farxiga on outpatient basis Patient is given a handout for heart attack and is advised to be compliant with medications. Patient is advised to follow-up with PCP in 1-2 days and his ferry terminal agent Dr. Barrera. Vital signs are reviewed and stable General: nontoxic, no distress, appears at stated age Derm: warm, dry, intact Head: atraumatic, normocephalic, symmetric Eyes: EOMI, anicteric sclera Mouth: no lip lesion, mucus membranes moist Cardiovascular: S1 S2 reg, no murmur, rubs, or gallops Lungs: CTA bilateral, no rales, no accessory muscle use Abdominal: soft, non-tender to palpataion, no appreciable organomegaly Extremities: no gross muscle atrophy, no edema, no contractures Neuro: Alert, Oriented, CNII-XII grossly intact, gait normal Psych: well appearing, appropriate affect A total of 30 minutes of time were spent preparing this complex discharge summary. Patient was discharged on 10/04/24 at 0946. Dictation was produced using [employer] dictation software. please excuse any grammatical, word or spelling error Verito Lema MD PGY-1 IM I have seen and evaluated the patient today. Discussed with the resident and agree with the residents finding and plan as documented in the resident's note. Changes highlighted in blue font. Patient Condition at Discharge: Stable Plan - Discharge Summary New Discharge Prescriptions: New Metoprolol Tartrate [Lopressor] 25 mg PO BID 30 Days #60 tab Continue Primidone [Mysoline] 250 mg PO DAILY oxyCODONE HCL [oxyCODONE HCL (IR)] 20 mg PO Q6H Omeprazole 20 mg PO HS Nitroglycerin Sl Tabs [Nitrostat] 0.4 mg SL Q5M PRN PRN Reason: Chest Pain metFORMIN HCL [Glucophage] 500 mg PO HS Losartan Potassium 100 mg PO DAILY Isosorbide Mononitrate ER [Imdur] 30 mg PO DAILY Oxybutynin ER [Ditropan XL] 10 mg PO DAILY Gabapentin [Neurontin] 300 mg PO BID Clopidogrel [Plavix] 75 mg PO DAILY Atorvastatin [Lipitor] 80 mg PO HS Aspirin EC [Ecotrin Low Dose] 81 mg PO HS amLODIPine [Norvasc] 5 mg PO HS Acetaminophen Tab [Tylenol] 325 mg PO Q6H Discontinued Aspirin EC [Ecotrin] 325 mg PO Q6H Discharge Medication List Acetaminophen Tab [Tylenol] 325 mg PO Q6H 10/03/24 [History] Aspirin EC [Ecotrin Low Dose] 81 mg PO HS 10/03/24 [History] Atorvastatin [Lipitor] 80 mg PO HS 10/03/24 [History] Clopidogrel [Plavix] 75 mg PO DAILY 10/03/24 [History] Gabapentin [Neurontin] 300 mg PO BID 10/03/24 [History] Isosorbide Mononitrate ER [Imdur] 30 mg PO DAILY 10/03/24 [History] Losartan Potassium 100 mg PO DAILY 10/03/24 [History] Nitroglycerin Sl Tabs [Nitrostat] 0.4 mg SL Q5M PRN 10/03/24 [History] Omeprazole 20 mg PO HS 10/03/24 [History] Oxybutynin ER [Ditropan XL] 10 mg PO DAILY 10/03/24 [History] Primidone [Mysoline] 250 mg PO DAILY 10/03/24 [History] amLODIPine [Norvasc] 5 mg PO HS 10/03/24 [History] metFORMIN HCL [Glucophage] 500 mg PO HS 10/03/24 [History] oxyCODONE HCL [oxyCODONE HCL (IR)] 20 mg PO Q6H 10/03/24 [History] Metoprolol Tartrate [Lopressor] 25 mg PO BID 30 Days #60 tab 10/04/24 [Rx] Follow up Appointment(s)/Referral(s): Nonstaff,Physician [REFERRING] - 1-2 days Patient Instructions/Handouts: Heart Attack (GEN) Activity/Diet/Wound Care/Special Instructions: Follow up with PCP and ferry terminal agent Dr. Barrera Discharge Disposition: HOME SELF-CARE
== END 2024-10-04 11:56 | disposition home or self-care (01) | DRG 322 ==
LOC: EC 02:51 → 3SCARD 04:32
PROVIDERS: ADMIT Student in an Organized Health Care Education/Training Program; ATTEND Student in an Organized Health Care Education/Training Program
PROC: 4A023N7 Measurement of Cardiac Sampling and Pressure, Left Heart, Percutaneous Approach (ICD-10-PCS; principal; 2024-10-03 11:30)
PROC: B240ZZ3 Ultrasonography of Single Coronary Artery, Intravascular (ICD-10-PCS; principal; 2024-10-03 11:30)
PROC: B2181ZZ Fluoroscopy of Left Internal Mammary Bypass Graft using Low Osmolar Contrast (ICD-10-PCS; principal; 2024-10-03 11:30)
PROC: 027034Z Dilation of Coronary Artery, One Artery with Drug-eluting Intraluminal Device, Percutaneous Approach (ICD-10-PCS; principal; 2024-10-03 11:30)
PROC: B3101ZZ Fluoroscopy of Thoracic Aorta using Low Osmolar Contrast (ICD-10-PCS; principal; 2024-10-03 11:30)
PROC: B2111ZZ Fluoroscopy of Multiple Coronary Arteries using Low Osmolar Contrast (ICD-10-PCS; principal; 2024-10-03 11:30)
DX: I21.4 Non-ST elevation (NSTEMI) myocardial infarction (principal); J81.1 Chronic pulmonary edema; I48.19 Other persistent atrial fibrillation; G62.9 Polyneuropathy, unspecified; E78.5 Hyperlipidemia, unspecified; E11.40 Type 2 diabetes mellitus with diabetic neuropathy, unspecified; I11.9 Hypertensive heart disease without heart failure; I44.7 Left bundle-branch block, unspecified; I25.10 Atherosclerotic heart disease of native coronary artery without angina pectoris; R32 Unspecified urinary incontinence; R00.1 Bradycardia, unspecified; I25.2 Old myocardial infarction; M26.629 Arthralgia of temporomandibular joint, unspecified side; K21.9 Gastro-esophageal reflux disease without esophagitis; Z95.1 Presence of aortocoronary bypass graft; Z95.5 Presence of coronary angioplasty implant and graft; Z95.818 Presence of other cardiac implants and grafts; Z86.73 Personal history of transient ischemic attack (TIA), and cerebral infarction without residual deficits; Z79.899 Other long term (current) drug therapy; Z79.84 Long term (current) use of oral hypoglycemic drugs; Z79.02 Long term (current) use of antithrombotics/antiplatelets
CPT/HCPCS: 36415; 71045; 71275; 80048; 80053; 80061; 83036; 83735; 84443; 84484; 85025; 85379; 85610; 85730; 92978; 93005; 93306; 93459; 93567; 94760; 96365; 96366; 96375; 99291